=== PATIENT | female | born 1970 | race African-American/Black ===

== ENCOUNTER 2017-04-19 10:43 | Emergency (ER) | payer OTHER ==
--- NOTE | 2017-04-19 11:18 | ER Document Report ---
ED General - General Chief Complaint: Skin Problem Stated Complaint: POSSIBLE ALLERGIC REACTION Time Seen by Provider: 04/19/17 11:00 Notes: Patient is a 46-year-old female who presents emergency department with multitude of complaints. Patient states she had a hydrocortisone shot for bone spurs in her foot last and over the course of the week has had multiple symptoms of discomfort. Patient admits to intermittent sore throat with associated nausea and vomiting and loose stools. Today she states that she feels a little clammy but otherwise she denies any nausea, vomiting, sore throat, abdominal pain, chest pain, shortness breath, cough, urinary or vaginal symptoms. She denies any rash. TRAVEL OUTSIDE OF THE [place] IN LAST 30 DAYS: No - Related Data Allergies/Adverse Reactions: Penicillins Allergy (Verified 04/19/17 10:52) Past Medical History - Social History Smoking Status: Never Smoker Family History: Reviewed & Not Pertinent Patient has suicidal ideation: No Patient has homicidal ideation: No Renal/ Medical History: Denies: Hx Peritoneal Dialysis Past Surgical History: Reports: Hx Orthopedic Surgery - right arm - ulnar nerve release - Immunizations Hx Diphtheria, Pertussis, Tetanus Vaccination: Yes Review of Systems - Review of Systems Constitutional: No symptoms reported EENT: See HPI Cardiovascular: No symptoms reported Respiratory: No symptoms reported Gastrointestinal: See HPI -: Yes All other systems reviewed and negative Physical Exam - Vital signs Vitals: Temp Pulse Resp BP Pulse Ox 98.4 F 74 20 165/94 H 97 04/19/17 10:55 04/19/17 10:55 04/19/17 10:55 04/19/17 10:55 04/19/17 10:55 - Notes Notes: PHYSICAL EXAM GENERAL: Alert, interacts well. HEAD: Normocephalic, atraumatic. EYES: Pupils equal, round, and reactive to light. Extraocular movements intact. ENT: Oral mucosa moist, tongue midline. NECK: Full range of motion. Supple. Trachea midline. LUNGS: Clear to auscultation bilaterally, no wheezes, rales, or rhonchi. No respiratory distress. HEART: Regular rate and rhythm. No murmurs, gallops, or rubs. ABDOMEN: Soft, nondistended, nontender. No guarding, rebound, or rigidity.. Bowel sounds present in all 4 quadrants. EXTREMITIES: Moves all 4 extremities spontaneously. No edema, radial and dorsalis pedis pulses 2/4 bilaterally. No cyanosis. NEUROLOGICAL: Alert and oriented x4. Normal speech. PSYCH: Normal affect, normal mood. SKIN: Warm, dry, normal turgor. No rashes or lesions noted. Course - Re-evaluation Re-evalutation: 04/19/17 11:18 26-year-old female. Stable, no acute distress and afebrile. Given that she has been throwing up with his bowel movements the past couple of days evaluated for dehydration. Negative orthostatics, urine is clean. Patient tolerating p.o. without any difficulty. Vital signs stable. Patient clinically states she feels fine. Stable for discharge home. - Vital Signs Vital signs: Temp Pulse Resp BP Pulse Ox 98.4 F 66 20 140/74 H 97 04/19/17 10:55 04/19/17 11:54 04/19/17 10:55 04/19/17 11:54 04/19/17 10:55 - Laboratory Laboratory results interpreted by me: 04/19/17 11:40 Urine Blood SMALL H Discharge - Discharge Clinical Impression: Nausea Condition: Good Disposition: HOME, SELF-CARE Additional Instructions: Patients should be encouraged to eat as tolerated. Smaller meals may be less likely to induce vomiting than larger ones. Frontier, low residue foods may also be better tolerated than others. For healthy adults with acute viral gastroenteritis without signs of dehydration , sport drinks, diluted fruit juices, and other flavored soft drinks augmented with saltine crackers and broths or soups can meet the fluid and salt needs in almost all cases. Broiled starches/cereals (potatoes, noodles, rice, wheat, and oat) with some salt are excellent foods to consider. In addition, crackers, bananas, yogurt, soups, and boiled vegetables can also be consumed. Forms: Elevated Blood Pressure, Return to Work Referrals: OTILIA SOW PA-C [Primary Care Provider] - Follow up as needed VERÓNICA COBOS DPM [ACTIVE STAFF] - Follow up as needed
[2017-04-19] MEDS ORDERED: ONDANSETRON 4 MG TAB.RAPDIS PO ONE (11:33)
[2017-04-19 11:54] LABS: APPEARANCE,URINE SLIGHTLY-CLOUDY; BILIRUBIN,URINE NEGATIVE (NEGATIVE); GLUCOSE, URINE NEGATIVE (NEGATIVE); KETONES,URINE NEGATIVE (NEGATIVE); LEUKOCYTE ESTERASE,URINE NEGATIVE (NEGATIVE); NITRITE,URINE NEGATIVE (NEGATIVE); PROTEIN,URINE NEGATIVE (NEGATIVE); URINE SPECIFIC GRAVITY 1.017; UROBILINOGEN,URINE NEGATIVE mg/dL (<2.0)
[2017-04-19 11:56] VITALS: BP 140/74
== END 2017-04-19 12:17 | disposition home or self-care (01) ==
LOC: ER 10:43
DX: R11.2 Nausea with vomiting, unspecified (principal); J02.9 Acute pharyngitis, unspecified; R19.4 Change in bowel habit; M77.50 Other enthesopathy of unspecified foot and ankle; Z98.890 Other specified postprocedural states; Z88.0 Allergy status to penicillin
CPT/HCPCS: 99283; 81001; S0119

== ENCOUNTER → 2018-10-07 | Outpatient (CLI) | payer OTHER ==
--- NOTE | 2018-10-07 14:48 | WOMENS IMAGING REPORT ---
EXAM DESCRIPTION: BILAT SCREENING MAMMO W/CAD COMPLETED DATE/TIME: 10/07/2018 8:44 am REASON FOR STUDY: BILATERAL SCREENING MAMMO /Z12.31 Z12.31 ENCNTR SCREEN MAMMOGRAM FOR MALIGNANT NE OPLASM OF JAYE COMPARISON: None. TECHNIQUE: Standard craniocaudal and mediolateral oblique views of each breast recorded using [employer]a l acquisition. LIMITATIONS: None. FINDINGS: No masses, calcifications or architectural distortion. No areas of suspicion. Read with the assistance of CAD. .[facility] - R2 Cenova Version 1.3 .[facility] - R2 Cenova Version 1.3 .[facility] - R2 Cenova Version 2.4 .[facility] - R2 Cenova Version 2.4 .[facility] - R2 [employer] Tender Version 9.2 IMPRESSION: NORMAL MAMMOGRAM. BIRADS 1. BREAST DENSITY: b. There are scattered areas of fibroglandular density. BIRAD: 1 NEGATIVE RECOMMENDATION: ROUTINE SCREENING COMMENT: The patient has been notified of the results by letter per MQSA requirements. Additional no tification policies are in place for contacting patient with suspicious or incomplete findings. Quality ID #[id number]: The [employer] recommends an annual screening mammogram for women aged 40 years or over. This facility utilizes a reminder system to ensure that all patients receive reminder letters, and/or direct phone calls for appointments. This includes reminders for routine scr eening mammograms, diagnostic mammograms, or other Breast Imaging Interventions when appropriate. Th is patient will be placed in the appropriate reminder system. The [employer] (ACR) has developed recommendations for screening MRI of the breast s in certain patient populations, to be used in conjunction with mammography. Breast MRI surveillanc e may be appropriate for women with more than 20% lifetime risk of developing breast cancer as deter mined by genetic testing, significant family history of the disease, or history of mantle radiation f or Hodgkins Disease. ACR Practice Guidelines 2008. TECHNICAL DOCUMENTATION: FINDING NUMBER: (1) ASSESSMENT: (1) JOB ID: [id number] [employer]- All Rights Reserved Reading location - IP/workstation name: [email or web address]
== END ==
LOC: WI 08:11
PROVIDERS: ATTEND Family Medicine
DX: Z12.31 Encounter for screening mammogram for malignant neoplasm of breast (principal)
CPT/HCPCS: 77067

== ENCOUNTER 2020-07-11 00:34 | Emergency (ER) | payer OTHER ==
[2020-07-11 00:58] VITALS: BP 147/85
[2020-07-11] MEDS ORDERED: CLINDAMYCIN HCL 150 MG CAPSULE PO ONE (01:06)
[2020-07-11] MEDS ORDERED: HYDROCODONE/ACETAMINOPHEN 5-325 MG (6 TAB/ER DISP) PO PRN (01:07)
--- NOTE | 2020-07-11 01:11 | ER Document Report ---
ED ENT - General Chief Complaint: Toothache Stated Complaint: POSSIBLE ABSCESS Time Seen by Provider: 07/11/20 01:06 Primary Care Provider: DREAD ASTORGA MD [Primary Care Provider] - Follow up as needed Notes: CHIEF COMPLAINT: Dental pain today HPI: 49-year-old female presenting with pain and swelling to the gums above the right upper lateral incisor. Patient believes the tooth broke and she may have an abscess. No fever but is complaining of facial pain. Patient does have a primary dentist who is closed on Sunday so she would like to start on antibiotics. ROS: See HPI - all other systems were reviewed and are otherwise negative Constitutional: no fever Eyes: no drainage, no blurred vision ENT: no runny nose, no sore throat Integumentary: no rash Allergy: no hives MEDICATIONS: I agree with the patient medications as charted by the RN. ALLERGIES: I agree with the allergies as charted by the RN. PAST MEDICAL HISTORY/PAST SURGICAL HISTORY: Reviewed and agree as charted by RN. SOCIAL HISTORY: Reviewed and agree as charted by RN. FAMILY HISTORY: No significant familial comorbid conditions directly related to patient complaint EXAM: Reviewed vital signs as charted by RN. CONSTITUTIONAL: Alert and oriented and responds appropriately to questions. Well-appearing; well-nourished HEAD: Normocephalic; atraumatic EYES: PERRL; Conjunctivae clear, sclerae non-icteric ENT: normal nose; no rhinorrhea; moist mucous membranes; pharynx without lesions noted, no uvula edema or deviation, no tonsillar hypertrophy, phonation normal. There is dental caries noted to the right upper lateral incisor and canine. There is soft tissue swelling to the gingiva with some erythema no definitive fluctuance just above these teeth. No sublingual swelling no trismus. No facial swelling. Phonation is normal NECK: Supple without meningismus; non-tender; no cervical lymphadenopathy, no masses CARD: capillary refill less than 3 seconds RESP: Normal chest excursion without splinting or tachypnea ABD/GI: non-distended BACK: The back appears normal EXT: Normal ROM in all joints; no cyanosis, no effusions, no edema SKIN: Normal color for age and race; warm; dry; good turgor NEURO: Moves all extremities equally; Motor and sensory function intact PSYCH: The patient's mood and manner are appropriate. Grooming and personal hygiene are appropriate. MDM: 49-year-old female with likely early dental abscess. Will start patient on clindamycin given penicillin allergy, short course of pain medication follow-up with her dentist TRAVEL OUTSIDE OF THE [place] IN LAST 30 DAYS: No - Related Data Allergies/Adverse Reactions: Penicillins Allergy (Verified 07/11/20 01:03) Past Medical History - Social History Smoking Status: Current Every Day Smoker Frequency of alcohol use: Rare Drug Abuse: None Family History: Reviewed & Not Pertinent Patient has homicidal ideation: No Neurological Medical History: Reports: Hx Migraine Renal/ Medical History: Denies: Hx Peritoneal Dialysis Past Surgical History: Reports: Hx Section, Hx Gynecologic Surgery - D & C, Hx Hysterectomy, Hx Orthopedic Surgery - right arm - ulnar nerve release - Immunizations Hx Diphtheria, Pertussis, Tetanus Vaccination: Yes Physical Exam - Vital signs Vitals: Temp Pulse Resp BP Pulse Ox 98.4 F 72 16 147/85 H 95 07/11/20 00:56 07/11/20 00:56 07/11/20 00:56 07/11/20 00:56 07/11/20 00:56 Course - Vital Signs Vital signs: Temp Pulse Resp BP Pulse Ox 98.4 F 72 16 147/85 H 95 07/11/20 01:04 07/11/20 00:56 07/11/20 00:56 07/11/20 00:56 07/11/20 00:56 Discharge - Discharge Clinical Impression: Dental abscess Condition: Stable Disposition: HOME, SELF-CARE Additional Instructions: 1. Take the medications as prescribed, if you were written antibiotics make sure that you finish them. 2. You need to follow up with a dentist for definitive evaluation and care of your dental problems 3. return to the ED for any facial swelling, fever > 101, difficulty swallowing or opening the mouth. 4. You may attempt to follow up with the [facility] for further care as well as through the dental list provided. 5. you may want to consider a dental discount plan such as [email or web address].com to help with costs of dental care as you do not have dental insurance Prescriptions: Clindamycin HCl 300 mg PO TID #30 capsule Ibuprofen [Motrin 600 Mg Tablet] 600 mg PO Q6H #15 tablet Hydrocodone/Acetaminophen [[place] 5-325 mg Tablet] 1 tab PO Q4 PRN #10 tablet PRN Reason: Referrals: DREAD ASTORGA MD [Primary Care Provider] - Follow up as needed
== END 2020-07-11 01:17 | disposition home or self-care (01) ==
LOC: ER 00:34
DX: K04.7 Periapical abscess without sinus (principal); K02.9 Dental caries, unspecified; K08.89 Other specified disorders of teeth and supporting structures; F17.200 Nicotine dependence, unspecified, uncomplicated
CPT/HCPCS: 99284